=== PATIENT | female | born 1945 | race Hispanic/Latino ===

== ENCOUNTER → 2024-04-25 | Day surgery (SDC) | payer MEDICARE ==
[~2024-04-25] MED LIST: ASPIRIN EC81 MG PO; ATORVASTATIN CA20 MG PO; BOTULINUM TOXIN TYPE A 100 UNIT VIAL IM ONE; CRESTOR40 MG PO; FAMOTIDINE 20 MG/2 ML VIAL IV ONE; FENTANYL CITRATE/PF 100MCG/2 ML INJ ONE; LEVOTHYROXINE75 MCG PO; LIDOCAINE HCL 2% LOCAL INJ 5 ML SDV VIAL INJ ONE; LOSARTAN POTAS100 MG PO; METFORMIN HCL500 M2 PO; MONTELUKAST SOD10 MG PO; NEURONTIN300 MG PO; ONDANSETRON HCL INJ 2MG/ML 2ML 2 MG/ML VIAL ONE; POTASSIUM99 M1 PO; PREDNISONE20 MG PO; PROPOFOL IV EMULSION 10 MG/ML 20 ML VIAL ONE; SEVOFLURANE INHAL SOLN 250 ML PEN BTL ONE; VITAMIN D3 COM1 EACH PO
[2024-04-25] MEDS: CEFTRIAXONE 1 GM VIAL ONE (06:24)
[2024-04-25] MEDS: LACTATED RINGER'S 1,000 ML ONE (06:24)
[2024-04-25 06:43] LABS: BASOPHILS % 0.5 % (0.0-1.0); EOSINOPHILS # (AUTO) 0.4 (0.0-0.4); EOSINOPHILS % 4.9 % (0.0-6.0); HEMATOCRIT 41.6 % (34.2-44.1); HEMOGLOBIN 13.8 g/dL (12.0-16.0); LYMPHOCYTES # (AUTO) 3.4 (1.0-3.2); LYMPHOCYTES % 45.2 % (18.0-39.1); MEAN CORPUSCULAR HEMOGLOBIN 30.3 pg (28-32); MEAN CORPUSCULAR HGB CONC 33.2 g/dL (31-35); MEAN CORPUSCULAR VOLUME 91.2 fL (81-99); MONOCYTES # (AUTO) 0.6 (0.2-0.8); NEUTROPHILS # (AUTO) 3.1 (2.1-6.9); NEUTROPHILS % 41.1 % (38.7-80.0); PLATELET COUNT 198 x10e3/uL (140-360); RED BLOOD COUNT 4.56 x10e6/uL (3.6-5.1); RED CELL DISTRIBUTION WIDTH 12.7 % (11.7-14.4); WHITE BLOOD COUNT 7.53 x10e3/uL (4.8-10.8)
[2024-04-25 07:35] LABS: ANION GAP 14.7 mmol/L (8-16); CALCIUM 9.8 mg/dL (8.4-10.2); CREATININE, SERUM 0.91 mg/dL (0.57-1.11); POTASSIUM 3.7 mmol/L (3.5-5.1)
[2024-04-25] MEDS: PHENAZOPYRIDINE HCL 100 MG TAB ONE (09:40)
[2024-04-25 10:10] VITALS: BP 124/70; PULSE 61; RESP 17; O2SAT 100
== END | disposition home or self-care (01) ==
LOC: OR 05:54
PROVIDERS: ATTEND Urology
DX: N39.41 Urge incontinence (principal); N39.0 Urinary tract infection, site not specified; N81.10 Cystocele, unspecified; N81.6 Rectocele; N36.41 Hypermobility of urethra; N95.2 Postmenopausal atrophic vaginitis; N32.89 Other specified disorders of bladder; E11.9 Type 2 diabetes mellitus without complications; I10 Essential (primary) hypertension; M47.9 Spondylosis, unspecified; Z79.84 Long term (current) use of oral hypoglycemic drugs; Z79.899 Other long term (current) drug therapy; Z79.82 Long term (current) use of aspirin; Z98.890 Other specified postprocedural states; Z90.710 Acquired absence of both cervix and uterus
CPT/HCPCS: 36415; 52005; 52287; 71046; 74420; 80048; 85025; 87086; 93005; C1758; J0587; J0696; J2003; J2405; J2704; J3010; J7121